=== PATIENT | female | born 1950 | race African-American/Black ===

== ENCOUNTER 2024-11-06 15:37 | Emergency (ER) | payer OTHER ==
[2024-11-06 16:17] VITALS: BP 152/91; TEMP 98.2; BMI 31.5
[2024-11-06] MEDS ORDERED: LIDOCAINE VISCOUS 2% ORAL/TOP 15 ML UNIT-DOSE CUP ONE ×2 (16:39→18:17)
[2024-11-06] MEDS: SODIUM CHLORIDE 1,000 ML IV ONE (16:53)
[2024-11-06] MEDS: LIDOCAINE VISCOUS 2% ORAL/TOP 15 ML UNIT-DOSE CUP MM ONE ×2 (16:54→18:27)
[2024-11-06 17:00] LABS: HEMOGLOBIN 14.6 G/dL (10.7-15.3); MCH 29.2 pg (25.7-33.7); MEAN CELL VOLUME 85.9 fl (80-96); MEAN PLT VOLUME 9.4 fl (7.5-11.1); PLATELET COUNT 218.3 10^3/uL (134-434); RDW 14.1 % (11.6-15.6); WHITE BLOOD COUNT 5.4 10^3/uL (4.0-10.8)
[2024-11-06 17:25] LABS: ALBUMIN 4.3 g/dl (3.4-5.0); BILIRUBIN,TOTAL 0.8 mg/dl (0.2-1); CREATININE 1.1 mg/dl (0.6-1.3); POTASSIUM 3.8 mmol/L (3.5-5.1); TOT PROT 7.2 g/dl (6.4-8.2)
[2024-11-06 18:32] VITALS: PULSE 84; RESP 16
== END 2024-11-06 18:52 | disposition home or self-care (01) ==
LOC: FER 15:37 → EDBD 15:37 → FER 18:52
DX: R22.0 Localized swelling, mass and lump, head (principal); R51.9 Headache, unspecified; B02.9 Zoster without complications; R07.89 Other chest pain
CPT/HCPCS: 36415; 80053; 84484; 85027; 93005; 99284-25